=== PATIENT | female | born 1935 | race Caucasian/White ===

== ENCOUNTER 2017-02-02 12:16 | Inpatient (IN) | payer OTHER ==
[~2017-02-02] VITALS: Ht 149.9 cm; Wt 56.7 kg
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
[2017-02-02] MEDS ORDERED: IBUPROFEN 400 MG TABLET ONE (12:40)
[2017-02-02] MEDS ORDERED: HYDROCODONE/APAP 5/325MG 1 EACH TABLET ONE ×2 (12:41→15:23)
[2017-02-02] MEDS ORDERED: HYDROCODONE/APAP 5/325MG 1 EACH TABLET PO ONE ×2 (13:00→15:30)
[2017-02-02] MEDS ORDERED: IBUPROFEN 400 MG TABLET PO ONE (13:00)
--- NOTE | 2017-02-02 13:48 | NUR ---
CALLED [facility], SPOKE WITH VIBHA, NOTIFIED HER THAT ER [facility] IS READY TO PRESENT THE PATIENT'S CASE TO [facility].
[2017-02-02] MEDS ORDERED: IV SET PRIMARY PUMP SET 1 EA INFUS.SET MC ONE (14:24)
[2017-02-02] MEDS ORDERED: IV NS 0.9% 1,000 ML ONE (14:24)
[2017-02-02] MEDS ORDERED: MORPHINE SULFATE INJ 2 MG/ML DISP.SYRIN ONE (14:24)
[2017-02-02 14:25] LABS: BASOPHILS % (AUTO) 0.5 % (0.0-2.0); EOSINOPHILS # (AUTO) 0.1 /CMM (0.0-0.7); EOSINOPHILS % (AUTO) 1.7 % (0.0-6.0); HEMATOCRIT 39 % (33-45); HEMOGLOBIN 13.2 g/dL (11.5-14.8); LYMPHOCYTES # (AUTO) 1.4 /CMM (0.8-4.8); MEAN CORPUSCULAR HEMOGLOBIN 35 PG (26.0-33.0); MEAN CORPUSCULAR HGB CONC 33 g/dl (31.0-36.0); MEAN CORPUSCULAR VOLUME 104 fL (82-100); MONOCYTES # (AUTO) 0.5 /CMM (0.1-1.30); MONOCYTES % (AUTO) 8.1 % (2.0-12.0); NEUTROPHILS # (AUTO) 4.2 /CMM (1.8-8.9); NEUTROPHILS % (AUTO) 67.7 % (43.0-81.0); PLATELET COUNT (AUTO) 159 /CMM (150-450); RDW COEFFICIENT OF VARIATION 12.9 (11.5-15.0); WHITE BLOOD COUNT (AUTO) 6.2 K/uL (4.3-11.0)
[2017-02-02] MEDS ORDERED: MORPHINE SULFATE INJ 2 MG/ML DISP.SYRIN IV ONE (14:30)
[2017-02-02] MEDS ORDERED: IV NS 0.9% 1,000 ML BAG IV ONE (14:30)
[2017-02-02 14:38] LABS: CALCIUM, SERUM 9.5 mg/dL (8.5-10.1); POTASSIUM 3.9 mmol/L (3.5-5.1)
[2017-02-02 14:44] LABS: ALBUMIN 3.7 g/dL (3.4-5.0); BILIRUBIN,DIRECT 0.2 mg/dL (0.0-0.2); BILIRUBIN,TOTAL 0.5 mg/dL (0.2-1.0); TOTAL PROTEIN, SERUM 6.5 g/dL (6.4-8.2)
[2017-02-02] MEDS ORDERED: ATEN25TA PO (14:50)
[2017-02-02] MEDS ORDERED: CITA20TA19 PO (14:50)
[2017-02-02] MEDS ORDERED: ATOR10TA PO (14:50)
[2017-02-02] MEDS ORDERED: LISI40TA4 PO (14:50)
[2017-02-02] MEDS ORDERED: CLON0.3P TD (14:50)
[2017-02-02] MEDS ORDERED: FURO-145 PO (14:50)
[2017-02-02] MEDS ORDERED: METH5TAB2 PO (14:50)
[2017-02-02] MEDS ORDERED: ASPI81TA2 PO (14:50)
[2017-02-02] MEDS ORDERED: POTA10TA15 PO (14:50)
[2017-02-02] MEDS ORDERED: HYDR-4076 PO (14:50)
[2017-02-02] MEDS ORDERED: MAGNESIUM HYDROXIDE 30 ML UDC PO PRN (15:00)
[2017-02-02] MEDS ORDERED: ALPRAZOLAM 0.25 MG TABLET PO PRN (15:00)
[2017-02-02] MEDS ORDERED: ACETAMINOPHEN 325 MG TABLET PO PRN (15:00)
[2017-02-02] MEDS ORDERED: MAG HYDROX/AL HYDROX/SIMETH 30 ML UDC PO PRN (15:00)
[2017-02-02] MEDS ORDERED: ONDANSETRON HCL/PF 4 MG/2 ML VIAL IVP PRN (15:00)
[2017-02-02] MEDS ORDERED: Z GUARD REMEDY 2 OZ OINT TP PRN (15:00)
[2017-02-02] MEDS ORDERED: ZOLPIDEM TARTRATE 5 MG TABLET PO PRN (15:00)
[2017-02-02] MEDS: ATENOLOL 25 MG TABLET PO SCH (15:00)
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
[2017-02-02 15:52] VITALS: BP 187/74
[2017-02-02] MEDS: hydrALAZINE HCL 25 MG TABLET PO SCH ×2 (16:58→21:31)
[2017-02-02] MEDS ORDERED: hydrALAZINE HCL 25 MG TABLET PO SCH (17:00)
--- NOTE | 2017-02-02 17:01 | NUR ---
RN NOTES PT REFUSED TENORMIN, PER PT SHE ALREADY TOOK ONE DOSE THIS MORNING
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
[2017-02-02] MEDS: HYDROMORPHONE INJ 2 MG/ML DISP.SYRIN IV PRN (19:56)
[2017-02-02 20:00] VITALS: BP 124/53
[2017-02-02] MEDS ORDERED: METHADONE HCL 10 MG TABLET PO SCH (20:00)
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
[2017-02-02] MEDS: HYDROCODONE/APAP 5/325MG 1 EACH TABLET PO PRN (21:29)
[2017-02-02] MEDS: LISINOPRIL (20MG) 20 MG TABLET PO SCH (21:30)
[2017-02-02] MEDS ORDERED: CITALOPRAM HYDROBROMIDE 10 MG TABLET PO SCH (22:00)
[2017-02-02] MEDS ORDERED: ATORVASTATIN 10 MG TABLET PO SCH (22:00)
[2017-02-03] VITALS: BP 121/56
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
[2017-02-03] MEDS: HYDROMORPHONE INJ 2 MG/ML DISP.SYRIN IV PRN ×2 (03:23→09:45)
[2017-02-03 04:00] VITALS: BP 136/55
[2017-02-03 06:31] LABS: BASOPHILS % (AUTO) 0.3 % (0.0-2.0); EOSINOPHILS # (AUTO) 0.1 /CMM (0.0-0.7); HEMATOCRIT 35 % (33-45); HEMOGLOBIN 11.6 g/dL (11.5-14.8); LYMPHOCYTES # (AUTO) 1.7 /CMM (0.8-4.8); LYMPHOCYTES % (AUTO) 24.1 % (20.0-44.0); MEAN CORPUSCULAR HEMOGLOBIN 34 PG (26.0-33.0); MEAN CORPUSCULAR HGB CONC 33 g/dl (31.0-36.0); MEAN CORPUSCULAR VOLUME 103 fL (82-100); MONOCYTES # (AUTO) 0.6 /CMM (0.1-1.30); MONOCYTES % (AUTO) 8.9 % (2.0-12.0); NEUTROPHILS # (AUTO) 4.6 /CMM (1.8-8.9); NEUTROPHILS % (AUTO) 64.7 % (43.0-81.0); PLATELET COUNT (AUTO) 159 /CMM (150-450); RDW COEFFICIENT OF VARIATION 13.3 (11.5-15.0); WHITE BLOOD COUNT (AUTO) 7.1 K/uL (4.3-11.0)
[2017-02-03 06:47] LABS: CALCIUM, SERUM 8.7 mg/dL (8.5-10.1); CREATININE 1.1 mg/dL (0.6-1.3); MAGNESIUM 1.9 mg/dL (1.8-2.4); PHOSPHORUS 4.2 mg/dL (2.5-4.9); POTASSIUM 4.1 mmol/L (3.5-5.1)
--- NOTE | 2017-02-03 07:24 | NUR ---
STRIPPING CUTTER AND WINDER RECEIVED PT IN BED AWAKE ALERT X3 PHARCI Addendum: 02/03/17 at 0726 by BEN CELAYA RN STRIPPING CUTTER AND WINDER RECEIVED PT IN BED AO X4 [place] SPEAKING FOLLOWS COMMANDS, ON RA SAT >93% LUNG SOUNDS CLEAR ABD SOFT ACITVE BOWL SOUNDS, PT COMPLAINS OF SHOULDER PAIN REFUSES PAIN MED AT THIS TIME, TURN AND CHANGE POSITION MADE PT COMFORTABLE, CALL LIGHT W/IN REACH IV ACCESS PATENT WILL CONTINUE TO MONITOR.
[2017-02-03] MEDS ORDERED: PANTOPRAZOLE 40 MG TABLET.DR PO SCH (07:30)
[2017-02-03 08:00] VITALS: BP 139/56
[2017-02-03] MEDS: hydrALAZINE HCL 25 MG TABLET PO SCH (08:27)
[2017-02-03] MEDS: ATENOLOL 25 MG TABLET PO SCH (08:28)
[2017-02-03] MEDS: LISINOPRIL (20MG) 20 MG TABLET PO SCH (08:30)
[2017-02-03] MEDS ORDERED: METHADONE HCL 10 MG TABLET PO SCH (09:00)
[2017-02-03 12:00] VITALS: BP 124/77
[2017-02-03 12:25] VITALS: BP 124/77
[2017-02-03] MEDS: HYDROCODONE/APAP 5/325MG 1 EACH TABLET PO PRN (12:25)
[2017-02-03] MEDS ORDERED: hydrALAZINE HCL 25 MG TABLET PO SCH (13:00)
--- NOTE | 2017-02-03 13:55 | NUR ---
MS RN NOTE Received pt around 1130. AOx4. [place] x1 given for pain in chest. VSS. Acuity decreased to MS from tele. ok for discharge. Primary RN returned, endorsed changes to RN.
--- NOTE | 2017-02-03 14:48 | NUR ---
TOE LINING CLOSER DC ORDERERS RECEIVED DC TEACHING DONE ALL PT NEEDS MEET, PRESCRIPTION GIVEN PT STABLE VS STABLE FAMILY AT BEDSIDE, ALL FORMS SIGNED AND PROVIDED COPIES TO PT PT DC HOME WITH PRIVATE CARE WITH ERUM AND SON.
== END 2017-02-03 16:24 | disposition home or self-care (01) | DRG 206 ==
LOC: ER 12:17 → TELE1 15:30 → MEDSG1 02-03 11:52
PROVIDERS: ADMIT Internal Medicine; ATTEND Internal Medicine
DX: S27.329A Contusion of lung, unspecified, initial encounter (principal); E78.5 Hyperlipidemia, unspecified; G89.4 Chronic pain syndrome; V43.52XA Car driver injured in collision with other type car in traffic accident, initial encounter; I10 Essential (primary) hypertension; M06.9 Rheumatoid arthritis, unspecified; M54.5 Low back pain; M48.00 Spinal stenosis, site unspecified; M19.90 Unspecified osteoarthritis, unspecified site; Y92.410 Unspecified street and highway as the place of occurrence of the external cause
CPT/HCPCS: 36415; 71010-TC; 71250-TC; 73030-TC; 80048-TC; 80061-TC; 80076-TC; 83690-TC; 83735-TC; 84100-TC; 84484-TC; 85025-TC; 87081-TC; 93307-TC; A4606; J1170; J2270; J7030; Z7610